=== PATIENT | male | born 1970 | race Caucasian/White ===

== ENCOUNTER → 2020-01-15 13:50 | Outpatient (BNVA) | payer OTHER, SELFPAY | PROVIDERS: Visit Provider Physician Assistant | DX: S46.211A Strain of muscle, fascia and tendon of other parts of biceps, right arm, initial encounter (principal); X58.XXXA Exposure to other specified factors, initial encounter; Y93.9 Activity, unspecified; Y92.9 Unspecified place or not applicable; Y99.8 Other external cause status; Z88.0 Allergy status to penicillin | CPT/HCPCS: 99212 ==

== ENCOUNTER → 2020-02-15 14:11 | Outpatient (BNVA) | payer OTHER, SELFPAY | PROVIDERS: Visit Provider Physician Assistant | DX: S46.211A Strain of muscle, fascia and tendon of other parts of biceps, right arm, initial encounter (principal); X58.XXXA Exposure to other specified factors, initial encounter; Y93.9 Activity, unspecified; Y92.9 Unspecified place or not applicable; Y99.8 Other external cause status | CPT/HCPCS: 99212 ==

== ENCOUNTER 2020-02-25 18:35 | Outpatient (REF) | payer OTHER, SELFPAY ==
--- NOTE | 2020-02-25 18:46 | MR_ITS ---
EXAMINATION: MRI ELBOW WITHOUT CONTRAST, RIGHT CLINICAL INFORMATION: Elbow pain, strain of muscle, fascia, tendon. COMPARISON: None TECHNIQUE: MR of the elbow without contrast was performed on a 1.5 Jeannie axial scanner. FINDINGS: BONE AND JOINTS: Normal alignment. No fracture. Marrow signal is within normal limits. No significant joint effusion. TENDONS AND MUSCLES: Mild intermediate T2 signal in the distal biceps tendon suggestive of mild tendinosis/strain. Brachialis, triceps tendons are intact. [id number] common extensor tendinosis, with increased intermediate T2 signal. Common flexor tendon is intact. LIGAMENTS: Intact. ULNAR NERVE: Within normal limits. MR/MR elbow RT wo con IMPRESSION: 1. [id number] common extensor tendinosis. 2. Findings suggestive of mild tendinosis/strain of the distal biceps tendon.
--- NOTE | 2020-02-25 18:46 | MR_ITS ---
EXAMINATION: MR SHOULDER WITHOUT CONTRAST, RIGHT CLINICAL INFORMATION: S46.219A - Strain of muscle, fascia and tendon of other part COMPARISON: None TECHNIQUE: MRI of the shoulder without contrast was performed on a high-field scanner. FINDINGS: ROTATOR CUFF: There is also moderate tendinosis of the junctional fibers of the supraspinatus and infraspinatus tendons, characterized by increased intrasubstance signal and tendon thickening. There is reactive subcortical cystic change and edema at the greater tuberosity. No discrete tears are identified. Subscapularis and teres minor are intact. No muscle atrophy or fatty infiltration. BICEPS: Normal. CORACOACROMIAL ARCH: The undersurface of the acromion is minimally curved with a small anterior subacromial spur. Mild subacromial subdeltoid bursitis. Mild to moderate acromioclavicular osteoarthritis. LABRUM/CAPSULE: Normal. GLENOHUMERAL JOINT/MARROW: As above, there are foci of subcortical cystic change and subcortical edema at the greater tuberosity deep to the insertions of the supraspinatus and infraspinatus tendons. No fractures. Marrow signal is otherwise normal. Articular cartilage appears well-preserved. MR/MR shoulder RT wo con IMPRESSION: 1. Moderate supraspinatus and infraspinatus tendinosis at the greater tuberosity with reactive subcortical edema and cystic change. No rotator cuff tears. 2. Mild to moderate acromioclavicular osteoarthritis 3. Mild subacromial subdeltoid bursitis. Small anterior subacromial spur.
== END 2020-02-25 18:36 | disposition home or self-care (01) ==
LOC: HO.MRI 18:35
PROVIDERS: Visit Provider Physician Assistant
DX: S46.219A Strain of muscle, fascia and tendon of other parts of biceps, unspecified arm, initial encounter (principal)
CPT/HCPCS: 73221

== ENCOUNTER → 2020-03-07 12:42 | Outpatient (BNVA) | payer OTHER, SELFPAY | PROVIDERS: PCP Internal Medicine; Visit Provider Physician Assistant | DX: M75.21 Bicipital tendinitis, right shoulder (principal) | CPT/HCPCS: 99212 ==

== ENCOUNTER → 2020-04-05 13:41 | Outpatient (BNVA) | payer OTHER, SELFPAY | PROVIDERS: PCP Internal Medicine; Visit Provider Orthopaedic Surgery | DX: M75.41 Impingement syndrome of right shoulder (principal) | CPT/HCPCS: 20610; 99212; J1040 ==

== ENCOUNTER 2020-04-07 15:00 | Outpatient (RCR) | payer OTHER, SELFPAY ==
--- NOTE | 2020-01-13 18:15 | MHC.PT.EP ---
[facility] [place] Office [place] Office [place] Office [address] Paul Constantino [address] [phone] F: [phone] F: [phone] F: [phone] F: [phone] Physical Therapy Plan of Care Date of Evaluation: 01/13/20 Date of Surgery: NA Diagnosis: This is a 49 yo male presenting to skilled PT with a script for biceps tendonitis R side Assessment: This is a 49 yo male presenting to skilled PT with a script for biceps tendonitis R side. Back in September he hurt himself at work where thought he strained his bicep however went on vacation the following week (does not remember a specific incident to cause the pain). When he came off of vacation he continued to have pain; he talked to work and went to work connection who referred him to ortho. At the time he had pain in the elbow and bicep on the R. He had a cortisone injection (this was helpful but pain still persistent) via ortho and sent to OT. He was DC'd on 11/26 by OT due to lack of improvement and has stopped therapy/HEP. He wanted an MRI but ortho has not ordered this yet. He is on light duty at work. Today at the al he has pain at the mid biceps and describes this as achy. Some days he feels good but others he has at rest. In addition he states that he has aggravated an old injury in his shoulder due to exercises and he has achiness at the shoulder as well with certain movements. Assessment demos pain ranging from 4-6/10. He demos decreased shoulder ROM, shoulder and scapular strength and impaired posture. Functionally, he is limited in work related activities including driving, pushing, pulling, lifting and carry. He is a good candidate for skilled PT 2x/wk for 5wks based on symptoms, age, functional limitations and previous rehab experiences. Frequency and Duration: The patient will be seen 2x/wk 5wks Short Term Goals: Patient will demo I and compliance with HEP Patient will improve ROM by at least 15 degs actively for ER Residential Goals: Patient will return to work in full Pain will improve to no more than 2/10 at the worst Patient will demo WNL shoulder AROM without pain Patient will improve scapular strength at least 1 level MMT Treatment Plan: Modalities to reduce pain, spasms and effusion. Manual therapy to restore motion and function. Therapeutic exercise to improve strength and flexibility. Neuromuscular re-education for posture and balance. Therapeutic activities to return to functional activities of daily living. Please sign and return to therapist. Thank you for your referral.
--- NOTE | 2020-04-22 11:40 | MHC.PT.DC ---
[facility] [place] Office [place] Office [place] Office [address] Paul Constantino [address] [phone] F: [phone] F: [phone] F: [phone] F: [phone] Physical Therapy Discharge Report Diagnosis: This is a 49 yo male presenting to skilled PT with a script for biceps tendonitis R side Date of Surgery: NA Date of Evaluation: 01/13/20 Date of Discharge: 04/22/20 Treatments to Date: 21 Cancellations to Date: 0 No Shows to Date: 0 Discharge Status: Independent with HEP Insurance Declined Tx Discharge Summary: Patient reporting in general feeling about the same. He continues to be at work and using the UE. At this time he has had occupation therapy without relief, and 21 visits of PT with little improvements noted as well. I referred him back to ortho for follow up due to limited gains towards goal. He was given a cortisone injection on Saturday the (does not feel like this has helped) and was once more referred back to PT. In terms of treatment, for tendonitis, we have been treating him with ther-ex and HEP for strengthening and stretching, manual work with tendon massage/STM and joint mobs, postural education and modalities specific for tendonitis including iontophoresis, e-stim and ultrasound. He demos decreased ROM with some shoulder movements since last reassessment but in general as seen in reassessment, strength, pain, spadi are all the same. At this time we were requesting to continue PT per orthopedic request 2x/wk for 3wks however was denied by insurance and DC'd at this time. Electronically signed by: Kalee Hood PT Please sign and return to therapist. Thank you for your referral.
== END 2020-04-22 11:41 | disposition home or self-care (01) ==
LOC: HO.PTCHIC 15:00
PROVIDERS: PCP Internal Medicine; Visit Provider Physician Assistant
DX: M75.21 Bicipital tendinitis, right shoulder (principal)
CPT/HCPCS: 97014; 97033; 97035; 97110; 97140; 97162; 97164; 97530

== ENCOUNTER → 2020-05-31 13:57 | Outpatient (BNVA) | payer OTHER, SELFPAY | PROVIDERS: Visit Provider Orthopaedic Surgery | DX: M75.21 Bicipital tendinitis, right shoulder (principal) | CPT/HCPCS: 99212 ==

== ENCOUNTER 2021-10-06 15:13 | Outpatient (REF) | payer OTHER, SELFPAY ==
--- NOTE | ~2021-10-06 | XR_ITS ---
EXAMINATION: XR SHOULDER, RIGHT CLINICAL INFORMATION: Pain in the right shoulder COMPARISON: None TECHNIQUE: Three views of the right shoulder. FINDINGS: No fracture. No dislocation. Glenohumeral joint is normal. Moderate degenerative change of the acromioclavicular joint. Spurring of the acromioclavicular joint involving the inferior articular margin of the bone. No soft tissue calcification. XR/XR shoulder RT min 2V IMPRESSION: 1. No acute abnormality. 2. Degenerative change of the acromioclavicular joint.
== END 2021-10-06 15:14 | disposition home or self-care (01) ==
LOC: HO.HMGCX 15:13
DX: M25.511 Pain in right shoulder (principal)
CPT/HCPCS: 73030

== ENCOUNTER → 2021-10-09 09:40 | Outpatient (BNVA) | payer OTHER, SELFPAY | PROVIDERS: Visit Provider Internal Medicine | DX: M54.10 Radiculopathy, site unspecified (principal) | CPT/HCPCS: 99203 ==

== ENCOUNTER → 2021-10-12 10:04 | Outpatient (BNVA) | payer OTHER, SELFPAY | PROVIDERS: Visit Provider Internal Medicine | DX: M75.41 Impingement syndrome of right shoulder (principal); R22.9 Localized swelling, mass and lump, unspecified | CPT/HCPCS: 72050; 99214 ==

== ENCOUNTER → 2021-10-24 10:40 | Outpatient (BNVA) | payer OTHER, SELFPAY | PROVIDERS: Visit Provider Physician Assistant Medical | DX: M79.601 Pain in right arm (principal); S16.1XXD Strain of muscle, fascia and tendon at neck level, subsequent encounter; X58.XXXD Exposure to other specified factors, subsequent encounter | CPT/HCPCS: 99213 ==

== ENCOUNTER → 2021-10-31 12:55 | Outpatient (BNVA) | payer OTHER, SELFPAY | PROVIDERS: Visit Provider Internal Medicine | DX: M79.601 Pain in right arm (principal) | CPT/HCPCS: 99214 ==

== ENCOUNTER → 2021-11-07 12:51 | Outpatient (BNVA) | payer OTHER, SELFPAY | PROVIDERS: Visit Provider Internal Medicine | DX: M54.12 Radiculopathy, cervical region (principal) | CPT/HCPCS: 99213 ==

== ENCOUNTER 2021-11-14 11:00 | Outpatient (RCR) | payer OTHER, SELFPAY ==
--- NOTE | 2021-10-19 14:58 | MHC.PT.EP ---
[facility] [place] Office [place] Office [place] Office [address] Paul Constantino [address] [phone] F: [phone] F: [phone] F: [phone] F: [phone] Physical Therapy Plan of Care Date of Evaluation: Date of Surgery: N/A Diagnosis: RT radicular arm pain (RC) Assessment: pt is a 51 y/o male presenting to physical therapy w/ referral of R radicular arm pain. pt's signs and symptoms consistent w/ cervical radiculopathy versus radial nerve involvement. Will continue to monitor and treat or refer as necessary. Impairments include pain, decreased range of motion, decreased strength, impaired functional mobility, impaired postural awareness. pt is a good candidate for skilled PT due to age, potential remediation of impairments, typical disease/condition progression and prognosis, comorbidities, and motivation. pt would benefit from tailored strengthening and stretching exercise program, functional training, postural re-training, neuromuscular re-education, modalities as needed for pain, equipment safety demonstration. Frequency and Duration: The patient will be seen 2x/wk for 4 wks Short Term Goals: pt will be I w/ HEP to promote self-management of condition. pt will improve R shoulder flexion and abduction AROM by 10 degrees to promote ease in overhead reaching for work-related activities. Group Home Goals: pt will report a statistically significant improvement in self-reported outcome measure, SPADI, to promote return to PLOF. pt will lift 40-50# object x3 reps w/ no verbal cueing for proper lifting mechanics to promote safe lifting for return to work. Treatment Plan: Modalities to reduce pain, spasms and effusion. Manual therapy to restore motion and function. Therapeutic exercise to improve strength and flexibility. Neuromuscular re-education for posture and balance. Therapeutic activities to return to functional activities of daily living. Electronically signed by: Elly Mullins PT, DPT Please sign and return to therapist. Thank you for your referral.
--- NOTE | 2021-11-14 18:02 | MHC.PT.DC ---
[facility] [place] Office [place] Office [place] Office [address] Paul Constantino [address] [phone] F: [phone] F: [phone] F: [phone] F: [phone] Physical Therapy Discharge Report Diagnosis: RT radicular arm pain (RC) Date of Surgery: N/A Date of Evaluation: 10/19/21 Date of Discharge: 11/14/21 Treatments to Date: 8 Cancellations to Date: 0 No Shows to Date: 0 Discharge Status: Achieved Goals Independent with HEP Discharge Summary: The patient had his last treatment session today and has made significant improvements since the start of his therapy. He does still complain of intermittent first three finger numbness/tingling on the affected side. Patient met all of his short and chcf goals today. Patient demonstrated proper body mechanics with lifting both from the ground and over head with no verbal cueing. He also improved his shoulder range of motion significantly since the start of therapy. He was provided with an updated home exercise program to continue strengthening and stretching his shoulder on his own. He is discharged from physical therapy plan of care at this time. Electronically signed by: Elly Mullins PT, DPT Please sign and return to therapist. Thank you for your referral.
== END 2021-11-14 18:03 | disposition home or self-care (01) ==
LOC: HO.PT 11:00
PROVIDERS: Visit Provider Internal Medicine
DX: M79.631 Pain in right forearm (principal)
CPT/HCPCS: 97110; 97112; 97140; 97162; 97164; 97530

== ENCOUNTER → 2021-11-21 13:00 | Outpatient (BNVA) | payer OTHER, SELFPAY | PROVIDERS: Visit Provider Internal Medicine | DX: M25.511 Pain in right shoulder (principal); R20.0 Anesthesia of skin | CPT/HCPCS: 99213 ==

== ENCOUNTER → 2021-11-28 12:54 | Outpatient (BNVA) | payer OTHER, SELFPAY | PROVIDERS: Visit Provider Internal Medicine | DX: M54.12 Radiculopathy, cervical region (principal); M48.05 Spinal stenosis, thoracolumbar region; R20.2 Paresthesia of skin | CPT/HCPCS: 99213 ==

== ENCOUNTER → 2021-12-19 07:53 | Outpatient (BNVA) | payer OTHER, SELFPAY | PROVIDERS: Visit Provider Internal Medicine | DX: M54.12 Radiculopathy, cervical region (principal) | CPT/HCPCS: 99213 ==

== ENCOUNTER → 2022-01-09 07:47 | Outpatient (BNVA) | payer OTHER, SELFPAY | PROVIDERS: Visit Provider Internal Medicine | DX: M54.12 Radiculopathy, cervical region (principal) | CPT/HCPCS: 99213 ==

== ENCOUNTER → 2022-01-25 07:57 | Outpatient (BNVA) | payer OTHER, SELFPAY | PROVIDERS: Visit Provider Internal Medicine | DX: M54.12 Radiculopathy, cervical region (principal); R20.0 Anesthesia of skin | CPT/HCPCS: 99213 ==

== ENCOUNTER → 2022-02-15 08:09 | Outpatient (BNVA) | payer OTHER, SELFPAY | PROVIDERS: Visit Provider Internal Medicine | DX: M79.644 Pain in right finger(s) (principal); R20.0 Anesthesia of skin | CPT/HCPCS: 99213 ==